=== PATIENT | female | born 1950 | race Hispanic/Latino ===

== ENCOUNTER 2017-06-19 10:26 | Outpatient (CLI) | payer MEDICARE, OTHER ==
[2017-06-19 11:04] LABS: Alanine Aminotransferase 28 units/L (7-56); Albumin 4.4 g/dL (3.9-5); BUN/Creatinine Ratio 21; Blood Urea Nitrogen 15 mg/dL (7-17); Calcium 9.6 mg/dL (8.4-10.2); Hemolysis Index 3
== END 2017-06-19 10:27 | disposition home or self-care (01) ==
LOC: LAB 10:26
PROVIDERS: ATTEND Specialist
DX: H53.2 Diplopia (principal)
CPT/HCPCS: 36415; 80053

== ENCOUNTER 2017-06-29 13:38 | Outpatient (CLI) | payer MEDICARE, OTHER ==
--- NOTE | 2017-07-06 16:31 | Magnetic Resonance Report ---
MRI ORBITS WITHOUT AND WITH CONTRAST: 06/29/17 CLINICAL: Double vision. TECHNIQUE: Thin section coronal and axial T2, axial proton density, coronal and axial T1 and postcontrast sagittal, coronal and axial T1 fat sat sequences on a 1.5 Nydia magnet. 12 cc of Multihance was injected intravenously for contrast portion of the exam and consent was obtained prior to the administration of contrast. FINDINGS: The orbits and globes are intact. No mass or abnormal enhancement. The optic nerves and optic tracts are intact. Intact optic chiasm. The extraocular muscles are normal. Normal pituitary gland and sella turcica. The cavernous sinuses are normal. Bilateral ethmoid sinus mucoperiosteal thickening. No air-fluid levels in the sinuses. IMPRESSION: 1. Normal orbits. 2. Bilateral ethmoid sinusitis.
--- NOTE | 2017-07-09 10:33 | Magnetic Resonance Report ---
MRI BRAIN WITHOUT AND WITH CONTRAST: 06/29/17 CLINICAL: Double vision. TECHNIQUE: Axial diffusion, T1, FLAIR, gradient echo T2*, and coronal and axial T2 and sagittal T1 plus coronal and axial postcontrast T1 sequences on a 1.5 Nydia magnet. 12.0 cc of Multihance was injected intravenously for the contrast portion of the exam. Consent was obtained prior to the administration of contrast. FINDINGS: Normal ventricles and sulci. No restricted diffusion. No mass or enhancing lesion. Few tiny bilateral nonspecific frontal and temporal lobe white matter hyperintensities on FLAIR and T2. None enhance. No hemorrhage, edema or extra-axial collection. Normal pituitary and optic chiasm. The brainstem and cerebellum are normal. Intact vascular flow voids. The orbits, sinuses and soft tissues are normal. Normal calvarium and skull base. IMPRESSION: Negative study with a few tiny nonspecific white matter hyperintensities on FLAIR and T2.
== END 2017-06-29 13:39 | disposition home or self-care (01) ==
LOC: SPVIMAG 13:38
PROVIDERS: ATTEND Specialist
DX: H53.2 Diplopia (principal); J32.2 Chronic ethmoidal sinusitis; Z85.828 Personal history of other malignant neoplasm of skin
CPT/HCPCS: 70543; 70553; A9577